=== PATIENT | male | born 1980 | race Caucasian/White ===

== ENCOUNTER 2017-03-24 19:00 | Emergency (ER) | payer OTHER ==
[~2017-03-24] VITALS: Ht 176.5 cm; Wt 83.9 kg
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
[2017-03-24] MEDS ORDERED: NAPR500T4 PO (20:15)
[2017-03-24 20:31] VITALS: BP 148/110
== END 2017-03-24 20:30 | disposition home or self-care (01) ==
LOC: ER 19:03
DX: S80.01XA Contusion of right knee, initial encounter (principal); V49.40XA Driver injured in collision with unspecified motor vehicles in traffic accident, initial encounter
CPT/HCPCS: 73562; 99283